=== PATIENT | male | born 1945 | race Caucasian/White ===

== ENCOUNTER 2022-08-10 05:15 | Emergency (ER) | payer MEDICARE, BC ==
[~2022-08-10] VITALS: Ht 172.7 cm; Wt 80.0 kg
[2022-08-10] MEDS ORDERED: GLUCOSAMINE-CH1 EACH PO (05:31)
[2022-08-10] MEDS ORDERED: PANTOPRAZOLE SO40 M2 PO (05:31)
[2022-08-10] MEDS ORDERED: PREVASTATIN PO (05:32)
[2022-08-10] MEDS ORDERED: NORVASC5 MG PO (05:33)
[2022-08-10] MEDS ORDERED: ALLERCLEAR10 MG PO (05:33)
[2022-08-10] MEDS ORDERED: FLOMAX0.4 MG PO (05:33)
[2022-08-10] MEDS ORDERED: CHILDREN'S ASPI81 MG PO (05:33)
[2022-08-10] MEDS ORDERED: CARAFATE1 GM PO (06:21)
--- NOTE | 2022-08-10 20:50 | EKG ---
[facility] [address] [facility] [place] [address] Signed Normal sinus rhythm Possible Left atrial enlargement Borderline ECG No previous ECGs available Confirmed by MILLI MICHELLE MD ([id number] on 08/10/2022 8:50:30 PM Electronically Signed By: MILLI MICHELLE MD 08/10/222049 PATIENT NAME: ALBERTO MEYER Electrocardiogram DATE OF : 45 PHYSICIAN: MILLI MICHELLE MD REPORT #: [id number] REPORT IS CONFIDENTIAL AND NOT TO BE RELEASED WITHOUT AUTHORIZATION
== END 2022-08-10 06:36 | disposition home or self-care (01) ==
LOC: ED 05:15
DX: K21.9 Gastro-esophageal reflux disease without esophagitis (principal); Z79.82 Long term (current) use of aspirin; Z79.899 Other long term (current) drug therapy
CPT/HCPCS: 36415; 71045; 80053; 83735; 84484; 85025; 93005; 93010; 99285-25